=== PATIENT | female | born 1965 | race Two or more races ===

== ENCOUNTER 2019-12-28 11:09 | Emergency (ER) | payer OTHER ==
--- NOTE | 2019-12-28 11:17 | NUR ---
PT [facility] PER REGISTRATION
== END 2019-12-28 11:19 | disposition left against medical advice (07) ==
LOC: ED 11:15
DX: R07.89 Other chest pain (principal); Z53.21 Procedure and treatment not carried out due to patient leaving prior to being seen by health care provider